=== PATIENT | male | born 1995 | race Caucasian/White ===

== ENCOUNTER 2018-07-22 12:15 | Emergency (ER) | payer BC ==
[~2018-07-22] VITALS: Ht 170.2 cm; Wt 72.7 kg
[2018-07-22] MEDS ORDERED: BACITRACIN 0.9 GM PACKET OINTMENT TP ONE (13:15)
[2018-07-22] MEDS ORDERED: LIDOCAINE 1% 10 ML VIAL INJ ONE (13:15)
[2018-07-22] MEDS ORDERED: CEPHALEXIN MONOHYDRATE 500 MG CAPSULE PO ONE (13:15)
[2018-07-22 14:02] VITALS: BP 121/69
[2018-07-22] MEDS ORDERED: IBUPROFEN 600 MG TABLET PO ONE (14:15)
== END 2018-07-22 14:23 | disposition home or self-care (01) ==
LOC: EMS 12:17
DX: L03.012 Cellulitis of left finger (principal)
CPT/HCPCS: 10060; 99284; J3490

== ENCOUNTER 2022-05-12 11:48 | Emergency (ER) | payer BC, MEDICAID ==
[~2022-05-12] VITALS: Ht 172.7 cm; Wt 85.9 kg
[2022-05-12] MEDS ORDERED: ONDANSETRON HCL 4 MG TABLET PO ONE (14:45)
[2022-05-12] MEDS ORDERED: LORazepam 2 MG/ML VIAL IM ONE (14:45)
[2022-05-12 14:49] LABS: BASOPHILS % (AUTO) 0.8 % (0.0-2.0); EOSINOPHILS % (AUTO) 1.5 % (1.0-6.0); HEMATOCRIT 45.4 % (41-53); HEMOGLOBIN 15.6 g/dL (13.5-17.5); LYMPHOCYTES # (AUTO) 2.3 K/uL (1.0-4.8); LYMPHOCYTES % (AUTO) 17.3 % (22.0-44.0); MEAN CORPUSCULAR HEMOGLOBIN 29.7 pg (26.0-34.0); MEAN CORPUSCULAR HGB CONC 34.4 G/dL (31.0-37.0); MEAN CORPUSCULAR VOLUME 86 fL (80-100); MONOCYTES # (AUTO) 0.9 K/uL (0.1-1.0); MONOCYTES % (AUTO) 6.9 % (2.0-9.0); NEUTROPHILS # (AUTO) 9.9 K/uL (1.8-7.7); NEUTROPHILS % (AUTO) 73.5 % (40.0-70.0); PLATELET COUNT (AUTO) 210 K/uL (150-450); RED BLOOD CELL COUNT(AUTO) 5.27 MIL/uL (4.50-5.90); RED CELL DISTRIBUTION WIDTH 13.3 % (11.5-14.5)
[2022-05-12 14:59] LABS: ANION GAP 8 mmol/L (8-16); CALCIUM, TOTAL 8.9 mg/dL (8.8-10.5); CARBON DIOXIDE 27 mmol/L (22-29); CHLORIDE 101 mmol/L (98-107); CREATININE 0.88 mg/dL (0.60-1.30); GLUCOSE,RANDOM 99 mg/dL (70-110); POTASSIUM 3.8 mmol/L (3.5-5.1); SODIUM SERUM 136 mmol/L (136-145); UREA NITROGEN, BLOOD 9 mg/dL (7-18)
[2022-05-12 15:00] LABS: GLOMERULAR FILTR. RATE CALC > 60 mL/min (>60)
[2022-05-12 15:06] LABS: ALANINE AMINOTRANSFERASE 59 U/L (12-78); ALBUMIN 3.7 g/dL (3.4-5.0); ALKALINE PHOSPHATASE 133 U/L (46-116); ASPARTATE AMINOTRANSFERASE 25 U/L (15-37); BILIRUBIN,TOTAL 0.3 mg/dL (0.1-1.0); LIPASE 185 U/L (73-393)
[2022-05-12] MEDS ORDERED: ONDA-104 PO (15:57)
[2022-05-12] MEDS ORDERED: MAG30ORA11 PO (15:57)
[2022-05-12 16:05] LABS: AMPHET/METH SCREEN,URINE POSITIVE (NEGATIVE); BARBITURATE SCREEN, URINE NEGATIVE (NEGATIVE); BENZODIAZEPINES SCREEN,URINE NEGATIVE (NEGATIVE); CANNABINOID SCREEN,URINE POSITIVE (NEGATIVE); COCAINE SCREEN,URINE NEGATIVE (NEGATIVE); METHADONE SCREEN, URINE NEGATIVE (NEGATIVE); OPIATE SCREEN,URINE NEGATIVE (NEGATIVE)
[2022-05-12 16:10] VITALS: BP 148/66
[2022-05-12 16:12] LABS: PHENCYCLIDINE SCREEN,URINE NEGATIVE (NEGATIVE)
== END 2022-05-12 16:12 | disposition home or self-care (01) ==
LOC: EMS 11:48
DX: F10.139 Alcohol abuse with withdrawal, unspecified (principal); F15.10 Other stimulant abuse, uncomplicated
CPT/HCPCS: 99284; 80053; 83690; 85025; 36415; 96372; 80307; G0480; J2060; Q0162